=== PATIENT | female | born 1995 | race Caucasian/White ===

== ENCOUNTER 2024-12-25 19:21 | Emergency (ER) | payer SELFPAY ==
[2024-12-25] MEDS ORDERED: METHYLPREDNISOLONE 125 MG INJ ONE (19:34)
[2024-12-25] MEDS ORDERED: WATER FOR INJ,STERILE 10 ML ONE (19:34)
[2024-12-25 20:07] LABS: Absolute Lymphocytes (CBC) 2.3 K/uL (0.7-4.9); Hematocrit 39.8 % (36.0-45.0); Hemoglobin 13.4 g/dL (12.0-15.0); MCH 31.3 pg (27.0-35.0); MCHC 33.7 g/dL (32.0-36.0); MCV 93.0 fL (80-100); MPV 7.9 fL (7.6-11.3); Nucleated RBC Absolute Count 0.0 (0-0); Nucleated Red Blood Cells % 0.0 % (0-0); RBC Red Blood Cell Count 4.28 M/uL (3.86-4.86); White Blood Count 9.10 thou/uL (4.3-10.9)
[2024-12-25 20:09] LABS: Anion Gap 8.3 mEq/L (5.0-15.0); BUN Blood Urea Nitrogen 11.0 mg/dL (7-18); Glucose Level 86.0 mg/dL (74-106); Potassium 3.3 mEq/L (3.5-5.1)
--- NOTE | 2024-12-25 20:15 | ER ---
Nurse's Notes [facility] Name: Niyah Grayson Age: 29 yrs Sex: Female : 1995 Arrival Date: 12/25/2024 Time: 19:21 Bed 3 Private MD: Diagnosis: Allergic reaction, untreated diabetes Presentation: 12/25 19:24 Chief complaint: EMS states: pt recently found out she has an allergy to pineapple and hm5 accidentally ingested a mixed drink with pineapple juice just prior to calling ems. ems sts they administered 4mg zofran, 25mg benadryl IV and 0.3mg epi and 25mg additional benadryl IM. sts never heard adventitious breath sounds but amdinistered meds out of precaution due to pt's complaints of feeling as if her throat was closing and redness to her chest. Coronavirus screen: Client denies travel out of the [place] in the last 14 days. At this time, the client does not indicate any symptoms associated with coronavirus-19. Ebola Screen: Patient negative for fever greater than or equal to 101.5 degrees Fahrenheit, and additional compatible Ebola Virus Disease symptoms Patient denies exposure to infectious person. Patient denies travel to an Ebola-affected area in the 21 days before illness onset. 19:24 Method Of Arrival: EMS: [place] [id number] 19:27 Initial Sepsis Screen: Does the patient meet any 2 criteria? No. Patient's initial [facility] sepsis screen is negative. Does the patient have a suspected source of infection? No. Patient's initial sepsis screen is negative. Risk Assessment: Do you want to hurt yourself or someone else? Patient reports no desire to harm self or others. Onset of symptoms was December 25, 2024 at 18:30. Care prior to arrival: Medication(s) given: zofran 4 mg, 0.3mg epi IM, 25mg benadryl IM, 25mg benadryl IV. 19:27 Acuity: ARBEN 3 [facility] Triage Assessment: 19:30 General: Appears in no apparent distress. comfortable, well groomed, well developed, hm5 well nourished, Behavior is calm, cooperative. Pain: Denies pain. EENT: No deficits noted. No signs and/or symptoms were reported regarding the EENT system. Neuro: No deficits noted. Cardiovascular: No deficits noted. Respiratory: Reports shortness of breath since ingesting pineapple juice around 18:30. GI: No deficits noted. No signs and/or symptoms were reported involving the gastrointestinal system. : No deficits noted. No signs and/or symptoms were reported regarding the genitourinary system. Derm: Skin is redness to chest. Musculoskeletal: No deficits noted. No signs and/or symptoms reported regarding the musculoskeletal system. Historical: - Allergies: 19:29 Rocephin; 5 19:29 Latex, Natural Rubber; 5 19:29 Iodine; 5 19:29 Toradol; 5 19:29 Tramadol HCl; [facility] - PMHx: 19:29 Bipolar disorder; Diabetes mellitus; Herpes simplex; Anxiety; 5 - Immunization history:: Adult Immunizations up to date. - Infectious Disease History:: Denies. - Social history:: Smoking status: unknown Patient uses alcohol, occasionally. Screenin:31 [facility] ED Fall Risk Assessment (Adult) History of falling in the last 3 months, [facility] including since admission No falls in past 3 months (0 pts) Confusion or Disorientation No (0 pts) Intoxicated or Sedated No (0 pts) Impaired Gait No (0 pts) Mobility Assist Device Used No (0 pt) Altered Elimination No (0 pt) Score/Fall Risk Level 0 - 2 = Low Risk. Abuse screen: Denies threats or abuse. Denies injuries from another. Nutritional screening: No deficits noted. Tuberculosis screening: No symptoms or risk factors identified. Assessment: 19:31 Reassessment: please see triage assessment. [facility] Vital Signs: 19:24 BP 127 / 80; Pulse 96; Resp 18; Temp 97.9; Pulse Ox 97% on R/A; Pain 0/10; [facility] 19:27 Weight 95.25 kg; Height 5 ft. 3 in. ; 5 20:26 BP 118 / 67; Pulse 87; Resp 17; Pulse Ox 98% on R/A; [facility] 19:27 Body Mass Index 37.20 (95.25 kg, 160.02 cm) [facility] 19:24 Pain Scale: Adult [facility] ED Course: 19:24 Patient arrived in ED. sp3 19:24 Екатерина Armando MD is Attending Physician. sp3 19:24 Brownlee, Sandra, RN is Primary Nurse. [facility] 19:28 Triage completed. [facility] 19:32 Family accompanied patient. 5 19:32 Patient has correct armband on for positive identification. Bed in low position. Call 5 light in reach. Side rails up X2. Adult w/ patient. Provided Education on: plan of care. 19:32 No provider procedures requiring assistance completed. Inserted saline lock: 20 gauge hm5 in right antecubital area, using aseptic technique. Blood collected. Flushed with 10 mL NS. 19:35 Arm band placed on right wrist. 5 20:26 IV discontinued, intact, bleeding controlled, No redness/swelling at site. Pressure 5 dressing applied. Administered Medications: 19:45 Drug: MethylPrednisoLONE IVP 125 mg IVP once Route: IVP; Site: right antecubital; 5 20:27 Follow up: Response: No adverse reaction [facility] Medication: 19:32 VIS not applicable for this client. [facility] Outcome: 20:15 Discharge ordered by . sp3 20:26 Discharged to home ambulatory, with family, [facility] 20:26 Condition: stable 20:26 Discharge instructions given to patient, Instructed on discharge instructions, follow up and referral plans. medication usage, Demonstrated understanding of instructions, follow-up care, medications, Prescriptions given X 2, 20:27 Patient left the ED. [facility] Signatures: Екатерина Armando MD MD sp3 Sandra Brownlee, RN RN [facility]
--- NOTE | 2024-12-25 20:16 | EDPHYS ---
Physician Documentation [facility] Name: Niyah Grayson Age: 29 yrs Sex: Female : 1995 Arrival Date: 12/25/2024 Time: 19:21 Bed 3 Private MD: ED Physician Екатерина Armando HPI: 12/25 19:26 This 29 yrs old Female presents to ER via Unassigned with complaints of allergic sp3 reaction. 19:26 29-year-old female with history of bipolar disease, depression, anxiety who is allergic sp3 to pineapples now presents via EMS for accidental ingestion of pineapple juice and a mixed beverage cocktail at a local bar. Patient immediately started noticing posterior oropharynx swelling and facial rash. EMS arrived to find patient with normal vital signs however did administer 0.3 mg of epinephrine subcutaneously and 25 mg of Benadryl IM as well as 25 mg IV. Patient's symptoms resolved upon arrival to the ED. Currently she feels "back to normal". She also states she is not on any of her diabetes medications secondary to being on Ozempic last year and then having a bad reaction and taken herself off of that and her metformin. She is requesting us to refill her metformin at the very least. She is also taking Valtrex for HSV. She denies any ongoing headache, difficulty breathing, swelling of any type, rash, shortness of breath, chest pain, abdominal pain, syncope, or any other signs or symptoms on ROS at this time.. Historical: - Allergies: 19:29 Rocephin; hm5 19:29 Latex, Natural Rubber; hm5 19:29 Iodine; hm5 19:29 Toradol; hm5 19:29 Tramadol HCl; hm5 - PMHx: 19:29 Bipolar disorder; Diabetes mellitus; Herpes simplex; Anxiety; hm5 - Immunization history:: Adult Immunizations up to date. - Infectious Disease History:: Denies. - Social history:: Smoking status: unknown Patient uses alcohol, occasionally. ROS: 19:29 Constitutional: Negative for fever, chills, and weight loss, Eyes: Negative for injury, sp3 pain, redness, and discharge, Neck: Negative for injury, pain, and swelling, Cardiovascular: Negative for chest pain, palpitations, and edema, Abdomen/GI: Negative for abdominal pain, nausea, vomiting, diarrhea, and constipation, Back: Negative for injury and pain, MS/Extremity: Negative for injury and deformity, Skin: Negative for injury, rash, and discoloration, Neuro: Negative for headache, weakness, numbness, tingling, and seizure, Psych: Negative for depression, anxiety, suicide ideation, homicidal ideation, and hallucinations, Allergy/Immunology: Negative for hives, rash, and allergies, 19:29 All other systems are negative, Exam: 19:29 Constitutional: This is a well developed, well nourished patient who is awake, alert, sp3 and in no acute distress. Head/Face: Normocephalic, atraumatic. Eyes: Pupils equal round and reactive to light, extra-ocular motions intact. Lids and lashes normal. Conjunctiva and sclera are non-icteric and not injected. Cornea within normal limits. Periorbital areas with no swelling, redness, or edema. ENT: Nares patent. No nasal discharge, no septal abnormalities noted. External auditory canals are clear. Oropharynx with no redness, swelling, or masses, exudates, or evidence of obstruction, uvula midline. Mucous membranes moist. Neck: Trachea midline, no thyromegaly or masses palpated, and no cervical lymphadenopathy. Supple, full range of motion without nuchal rigidity, or vertebral point tenderness. No Meningismus. Chest/axilla: Normal chest wall appearance and motion. Nontender with no deformity. No lesions are appreciated. Cardiovascular: Regular rate and rhythm with a normal S1 and S2. No gallops, murmurs, or rubs. Normal PMI, no JVD. No pulse deficits. Respiratory: Lungs have equal breath sounds bilaterally, clear to auscultation and percussion. No rales, rhonchi or wheezes noted. No increased work of breathing, no retractions or nasal flaring. Abdomen/GI: Soft, non-tender, with normal bowel sounds. No distension or tympany. No guarding or rebound. No evidence of tenderness throughout. Back: No spinal tenderness. No costovertebral tenderness. Full range of motion. Skin: Warm, dry with normal turgor. Normal color with no rashes, no lesions, and no evidence of cellulitis. MS/ Extremity: Pulses equal, no cyanosis. Neurovascular intact. Full, normal range of motion. Neuro: Awake and alert, GCS 15, oriented to person, place, time, and situation. Cranial nerves II-XII grossly intact. Motor strength 5/5 in all extremities. Sensory grossly intact. Cerebellar exam normal. Normal gait. Psych: Awake, alert, with orientation to person, place and time. Behavior, mood, and affect are within normal limits. Vital Signs: 19:24 BP 127 / 80; Pulse 96; Resp 18; Temp 97.9; Pulse Ox 97% on R/A; Pain 0/10; 5 19:27 Weight 95.25 kg; Height 5 ft. 3 in. ; 5 20:26 BP 118 / 67; Pulse 87; Resp 17; Pulse Ox 98% on R/A; 5 19:27 Body Mass Index 37.20 (95.25 kg, 160.02 cm) [facility] 19:24 Pain Scale: Adult [facility] MDM: 19:24 Medical Screening Exam initiated sp3 19:29 Data reviewed: vital signs, nurses notes, EMS record, lab test result(s). ED course: sp3 21-year-old female with allergic reaction. I do not believe patient had anaphylaxis. We will add Solu-Medrol to her regimen. We also check routine labs including glucose. Will discharge with EpiPen, prednisone and metformin.. 20:14 ED course: Blood sugar at 86. We will hold on the metformin.. sp3 12/25 19:25 Order name: Basic Metabolic Panel; Complete Time: 20:14 sp3 12/25 19:25 Order name: CBC with Diff; Complete Time: 20:14 sp3 12/25 19:25 Order name: Cardiac monitoring; Complete Time: 19:33 sp3 12/25 19:25 Order name: IV Saline Lock; Complete Time: 19:33 sp3 12/25 19:25 Order name: Labs collected and sent; Complete Time: 19:45 sp3 Administered Medications: 19:45 Drug: MethylPrednisoLONE IVP 125 mg IVP once Route: IVP; Site: right antecubital; [facility] 20:27 Follow up: Response: No adverse reaction [facility] Disposition Summary: 12/25/24 20:15 Discharge Ordered Notes: Location: Home sp3 Condition: Stable sp3 Diagnosis - Allergic reaction, untreated diabetes sp3 Followup: sp3 - With: Private Physician - When: Upon discharge from the Emergency Department - Reason: Continuance of care Discharge Instructions: - Discharge Summary Sheet sp3 - Hives sp3 Forms: - Medication Reconciliation Form sp3 - Antibiotic Education sp3 - Prescription Opioid Use sp3 - Patient Portal Instructions sp3 - Leadership Thank You Letter sp3 Prescriptions: - EpiPen 0.3 mg/0.3 mL Injection Auto-Injector - administer 0.3 milligram INTRAMUSCULAR route every 5 to 15 minutes as needed sp3 for hypersensitivity reaction; do not exceed 3 doses per episode; 2 Each; Refills: 0, Product Selection Permitted - Prednisone 20 mg Oral Tablet - take 2 tablets ORAL route once daily for 5 days; 10 tablet; Refills: 0, Product sp3 Selection Permitted Signatures: Dispatcher [employer] Екатерина Murphy MD MD sp3 Sandra Brownlee RN RN hm5
[2024-12-26 02:09] VITALS: TEMP 97.9
[2024-12-26 02:11] VITALS: BP 118/67; O2SAT 98
== END 2024-12-25 20:27 | disposition home or self-care (01) ==
LOC: ER 19:21
DX: R21 Rash and other nonspecific skin eruption (principal); E11.9 Type 2 diabetes mellitus without complications
CPT/HCPCS: 36415; 80048; 85025; 96374; 99284; J2919